=== PATIENT | female | born 1990 | race African-American/Black ===

== ENCOUNTER 2016-12-22 11:29 | Emergency (ER) | payer OTHER ==
[~2016-12-22 11:29] MED LIST: CEPH500C PO; CIPR250T30 PO; HYDR-971 PO; ONDA4TAB12 PO; POLY17PO5 PO; PROC10TA57 PO; SULF1TAB23 PO; TRAM-29 PO
[2016-12-22] MEDS ORDERED: IV NORMAL SALINE 1000ML BAG 1,000 ML IV SCH (12:38)
--- NOTE | 2016-12-22 12:45 | ED.ADGEN ---
Past Medical History Past Medical History: No Pertinent History Past Surgical History: , Other Additional Past Surgical Histo: HERNIA REPAIR Alcohol Use: Occasionally Drug Use: None Adult General Chief Complaint Chief Complaint: VAGINAL BLEEDING HPI HPI Patient is a 26 year old female who is a at approximately 6 weeks presents complaining of intermittent but progressively worsening right lower quadrant pain over the last 4 days. She reports that she noticed some pinkish tinge when she wiped this morning. She reports that happened only the one time and has seen no evidence of blood since then. She denies any other vaginal discharge or bleeding. She has not had an ultrasound or any care for this yet. Patient does report significant problems throughout both of her previous 2 pregnancies. She denies any fever, chills, nausea, vomiting. Denies any dysuria or changes in bowel habits. He tells that the pain feels better when she applies gentle pressure. She describes it as "cramp-like" Review of Systems Review of Systems Constitutional: Denies fever or chills. [] Eyes: Denies change in visual acuity. [] HENT: Denies nasal congestion or sore throat. [] Respiratory: Denies cough or shortness of breath. [] Cardiovascular: Denies chest pain or edema. [] GI: Denies abdominal pain, nausea, vomiting, bloody stools or diarrhea. [] : Denies dysuria. [] Musculoskeletal: Denies back pain or joint pain. [] Integument: Denies rash. [] Neurologic: Denies headache, focal weakness or sensory changes. [] Endocrine: Denies polyuria or polydipsia. [] Lymphatic: Denies swollen glands. [] Psychiatric: Denies depression or anxiety. [] Current Medications Current Medications Current Medications Medications (Trade) Dose Ordered Sig/Jemma Start Time Stop Time Status Last Admin Dose Admin Sodium Chloride (Iv Sodium Chloride 0.9% 1000ml Bag) 1,000 ml @ 1,000 mls/hr Q1H 12/22/16 12:38 12/22/16 13:37 DC 12/22/16 13:14 1,000 MLS/HR Allergies Allergies Allergies Coded Allergies Type Severity Reaction Last Updated Verified No Known Drug Allergies 07/16/16 No Physical Exam Physical Exam Constitutional: Well developed, well nourished, no acute distress, non-toxic appearance. [] HENT: Normocephalic, atraumatic, bilateral external ears normal, oropharynx moist, no oral exudates, nose normal. [] Eyes: PERRLA, EOMI, conjunctiva normal, no discharge. [] Neck: Normal range of motion, no tenderness, supple, no stridor. [] Cardiovascular:Heart rate regular rhythm, no murmur [] Lungs & Thorax: Bilateral breath sounds clear to auscultation [] Abdomen: Bowel sounds normal, soft, mild right lower quadrant tenderness to palpation without peritoneal signs, no masses, no pulsatile masses. [] Skin: Warm, dry, no erythema, no rash. [] Back: No tenderness, no CVA tenderness. [] Extremities: No tenderness, no cyanosis, no clubbing, ROM intact, no edema. [] Neurologic: Alert and oriented X 3, normal motor function, normal sensory function, no focal deficits noted. [] Psychologic: Affect normal, judgement normal, mood normal. [] Current Patient Data Vital Signs Vital Signs Date Time Temp Pulse Resp B/P Pulse Ox O2 Delivery O2 Flow Rate FiO2 12/22/16 15:00 86 20 98/53 100 Room Air 12/22/16 12:20 97.8 97.8 Lab Values Laboratory Tests Test 12/22/16 12:05 12/22/16 13:07 Urine Collection Type Unknown Urine Color Yellow Urine Clarity Clear Urine pH 6.5 Urine Specific [place] >=1.030 Urine Protein Negativemg/dL (NEG-TRACE) Urine Glucose (UA) Negativemg/dL (NEG) Urine Ketones (Stick) Negativemg/dL (NEG) Urine Blood Negative (NEG) Urine Nitrite Negative (NEG) Urine Bilirubin Negative (NEG) Urine Urobilinogen Dipstick 1.0mg/dL (0.2 mg/dL) Urine Leukocyte Esterase Trace (NEG) Urine RBC 0/HPF (0-2) Urine WBC Occ/HPF (0-4) Urine Squamous Epithelial Cells Many/LPF Urine Bacteria 0/HPF (0-FEW) Urine Mucus Marked/LPF Urine Test Positive (NEG) White Blood Count 7.0x10^3/uL (4.0-11.0) Red Blood Count 4.66x10^6/uL (3.50-5.40) Hemoglobin 12.2g/dL (12.0-15.5) Hematocrit 37.9% (36.0-47.0) Mean Corpuscular Volume 81fL (79-100) Mean Corpuscular Hemoglobin 26pg (25-35) Mean Corpuscular Hemoglobin Concent 32g/dL (31-37) Red Cell Distribution Width 14.2% (11.5-14.5) Platelet Count 183x10^3/uL (140-400) Neutrophils (%) (Auto) 68% (31-73) Lymphocytes (%) (Auto) 23% (24-48) L Monocytes (%) (Auto) 8% (0-9) Eosinophils (%) (Auto) 1% (0-3) Basophils (%) (Auto) 0% (0-3) Neutrophils # (Auto) 4.8x10^3uL (1.8-7.7) Lymphocytes # (Auto) 1.6x10^3/uL (1.0-4.8) Monocytes # (Auto) 0.5x10^3/uL (0.0-1.1) Eosinophils # (Auto) 0.1x10^3/uL (0.0-0.7) Basophils # (Auto) 0.0x10^3/uL (0.0-0.2) Maternal Serum HCG Beta Subunit [id number]/mL (0-6) H Sodium Level 139mmol/L (136-145) Potassium Level 3.7mmol/L (3.5-5.1) Chloride Level 104mmol/L (98-107) Carbon Dioxide Level 24mmol/L (21-32) Anion Gap 11 (6-14) Blood Urea Nitrogen 8mg/dL (7-20) Creatinine 0.6mg/dL (0.6-1.0) Estimated GFR (Cockcroft-Gault) 147.4 Glucose Level 85mg/dL (70-99) Calcium Level 8.9mg/dL (8.5-10.1) Total Bilirubin 0.3mg/dL (0.2-1.0) Direct Bilirubin 0.1mg/dL (0.0-0.2) Aspartate Amino Transferase (AST) 16U/L (15-37) Alanine Aminotransferase (ALT) 11U/L (14-59) L Alkaline Phosphatase 52U/L (46-116) Total Protein 7.6g/dL (6.4-8.2) Albumin 3.6g/dL (3.4-5.0) Laboratory Tests 12/22/16 13:07 Laboratory Tests 12/22/16 13:07 EKG EKG [] Radiology/Procedures Radiology/Procedures Procedure: OB Sono Less Than 14Wks 0 Days Clinical information: Spotting, patient is Date of Service: 12/22/16. Comparison: None available Technique: Multiple transabdominal and endovaginal longitudinal and transverse 2D real time ultrasound images through the pelvis were acquired. Findings: The uterus measures[ 9.6 x 5.6 x 6.1 ] There is a single intrauterine gestational sac containing a [ live] pole and yolk sac. CRL measures [ 0.33 ] centimeters corresponding to [ 6 ] weeks and [ 0 ] days. This corresponds to a EDC of [ 08/17/17 ] . Maturity by LMP is [ 5 weeks and 6 days ] . This corresponds to a EDC of [ 08/18/17 ] . Doppler interrogation reveals a cardiac activity at the rate of 115beats per minute. The ovaries are unremarkable. The right ovary measures 2.7 x 1.8 x 1.7 cm the left ovary measures 2.9 x 2.0 x 1.5 cm. Symmetric vascularity to both ovaries. No adnexal mass is seen. No free fluid is seen. Impression: 1. Single intrauterine gestational sac containing a pole of maturity 6 weeks and 0 days with cardiac activity 115 bpm DICTATED and SIGNED BY: PARISH EDMONDS MD DATE: 12/22/16 1338 CC: YAQUELIN LAROSE MD; VANDANA VELASCO PHOTOGRAPH DEVELOPER ~[] Course & Med Decision Making Course & Med Decision Making Pertinent Labs and Imaging studies reviewed. (See chart for details) The patient did have a very reassuring workup. Emergency department. Her Quant and ultrasound are consistent with her dates and did demonstrate a interuterine . Patient was asked to follow-up with her OB doctor next week if possible and return emergency department sooner she develops any new or worsening symptoms. [] Dragon Disclaimer Dragon Disclaimer This electronic medical record was generated, in whole or in part, using a voice recognition dictation system. YAQUELIN LAROSE MD Dec 22, 2016 12:45
[2016-12-22 12:55] LABS: NEG OBC UR NEG; POS OBC UR POS
[2016-12-22 13:00] LABS: BILIRUBIN,URINE NEGATIVE (NEG); GLUCOSE,URINE NEGATIVE (NEG); NITRITE,URINE NEGATIVE (NEG); PH,URINE 6.5; PROTEIN,URINE NEGATIVE (NEG-TRACE)
[2016-12-22 13:15] LABS: BACTERIA,URINE 0 /HPF (0-FEW); RBC,URINE 0 /HPF (0-2); SQUAMOUS EPITHELIAL CELL,UR MANY /LPF; WBC,URINE OCC /HPF (0-4)
[2016-12-22 13:31] LABS: CALCIUM 8.9 mg/dL (8.5-10.1); CREATININE 0.6 mg/dL (0.6-1.0); GFR 147.4; POTASSIUM 3.7 mmol/L (3.5-5.1)
[2016-12-22 13:33] LABS: BASO % 0 % (0-3); EOS % 1 % (0-3); HEMATOCRIT 37.9 % (36.0-47.0); HEMOGLOBIN 12.2 g/dL (12.0-15.5); LYMPH # 1.6 x10^3/uL (1.0-4.8); LYMPH % 23 % (24-48); MEAN CORPUSCULAR HEMOGLOBIN 26 pg (25-35); MEAN CORPUSCULAR HGB CONC 32 g/dL (31-37); MEAN CORPUSCULAR VOLUME 81 fL (79-100); MONO % 8 % (0-9); NEUT % 68 % (31-73); PLATELET COUNT 183 x10^3/uL (140-400); RED BLOOD COUNT 4.66 x10^6/uL (3.50-5.40); RED CELL DISTRIBUTION WIDTH 14.2 % (11.5-14.5)
[2016-12-22 13:37] LABS: ALBUMIN 3.6 g/dL (3.4-5.0); DIRECT BILIRUBIN 0.1 mg/dL (0.0-0.2); TOTAL BILIRUBIN 0.3 mg/dL (0.2-1.0); TOTAL PROTEIN 7.6 g/dL (6.4-8.2)
--- NOTE | 2016-12-22 13:48 | RAD ---
Procedure: OB Sono Less Than 14Wks 0 Days Clinical information: Spotting, patient is Date of Service: 12/22/16. Comparison: None available Technique: Multiple transabdominal and endovaginal longitudinal and transverse 2D real time ultrasound images through the pelvis were acquired. Findings: The uterus measures[ 9.6 x 5.6 x 6.1 ] There is a single intrauterine gestational sac containing a [ live] pole and yolk sac. CRL measures [ 0.33 ] centimeters corresponding to [ 6 ] weeks and [ 0 ] days. This corresponds to a EDC of [ 08/17/17 ] . Maturity by LMP is [ 5 weeks and 6 days ] . This corresponds to a EDC of [ 08/18/17 ] . Doppler interrogation reveals a cardiac activity at the rate of 115beats per minute. The ovaries are unremarkable. The right ovary measures 2.7 x 1.8 x 1.7 cm the left ovary measures 2.9 x 2.0 x 1.5 cm. Symmetric vascularity to both ovaries. No adnexal mass is seen. No free fluid is seen. Impression: 1. Single intrauterine gestational sac containing a pole of maturity 6 weeks and 0 days with cardiac activity 115 bpm
[2016-12-22 15:00] VITALS: BP 98/53
== END 2016-12-22 15:00 | disposition home or self-care (01) ==
LOC: ER 11:29
DX: O26.891 Other specified pregnancy related conditions, first trimester (principal); R10.31 Right lower quadrant pain; Z3A.01 Less than 8 weeks gestation of pregnancy
CPT/HCPCS: 36415; 76801; 80048; 80076; 81001; 81025; 84702; 85027; 86900; 86901; 96360; 99285; J7030; 87086

== ENCOUNTER 2017-01-13 16:23 | Emergency (ER) | payer OTHER ==
[~2017-01-13] VITALS: Ht 149.9 cm; Wt 63.0 kg
[2017-01-13 17:00] VITALS: BP 98/58
[2017-01-13] MEDS ORDERED: ACETAMINOPHEN 500 MG TABLET PO ONE (17:00)
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
== END 2017-01-13 17:25 | disposition home or self-care (01) ==
LOC: ER 16:23
DX: O26.891 Other specified pregnancy related conditions, first trimester (principal); R10.30 Lower abdominal pain, unspecified; M54.5 Low back pain; R42 Dizziness and giddiness; R11.0 Nausea; Z3A.00 Weeks of gestation of pregnancy not specified; V89.2XXA Person injured in unspecified motor-vehicle accident, traffic, initial encounter; Y93.89 Activity, other specified; Y92.410 Unspecified street and highway as the place of occurrence of the external cause; Y99.8 Other external cause status
CPT/HCPCS: 99284

== ENCOUNTER 2017-02-10 18:35 | Emergency (ER) | payer OTHER ==
[~2017-02-10] VITALS: Ht 149.9 cm; Wt 60.3 kg
[2017-02-10] MEDS ORDERED: IV NORMAL SALINE 1000ML BAG 1,000 ML IV SCH (19:00)
[2017-02-10 19:06] LABS: BILIRUBIN,URINE NEGATIVE (NEG); GLUCOSE,URINE NEGATIVE (NEG); NITRITE,URINE NEGATIVE (NEG); PROTEIN,URINE NEGATIVE (NEG-TRACE); UROBILINOGEN,URINE 0.2 mg/dL (0.2 mg/dL)
[2017-02-10] MEDS ORDERED: ONDANSETRON PF 4 MG/2 ML VIAL. IV ONE (19:15)
[2017-02-10 19:19] LABS: CREATININE 0.5 mg/dL (0.6-1.0); GFR 181.9; POTASSIUM 3.4 mmol/L (3.5-5.1)
[2017-02-10 19:23] LABS: BACTERIA,URINE 0 /HPF (0-FEW); RBC,URINE OCC /HPF (0-2); SQUAMOUS EPITHELIAL CELL,UR MOD /LPF
[2017-02-10 20:00] VITALS: BP 92/60
[2017-02-10] MEDS ORDERED: POTASSIUM CHLORIDE 20 MEQ TABLET.ER. PO ONE (20:00)
[2017-02-10] MEDS ORDERED: PROM12.56 PO (20:00)
--- NOTE | 2017-02-10 20:00 | PHYS DOC ---
Past Medical History Past Medical History: No Pertinent History Past Surgical History: , Other Additional Past Surgical Histo: HERNIA REPAIR Alcohol Use: None Drug Use: None Adult General Chief Complaint Chief Complaint: VOMITING IN HPI HPI Patient is a 26 year old female approx 15 wk IUP who presents with multiple episodes of nbnb emesis today. States she has minimal abdominal pain that developed after multiple episodes of emesis. States this feels exactly like her other episodes of intermittent nausea and vomiting that has occurred during this . She is taking Diclegis and Zofran at home without control of her symptoms. Denies dysuria, hematuria, fever or chills, diarrhea, constipation , vaginal bleeding or discharge. Review of Systems Review of Systems Constitutional: Denies fever or chills [] Eyes: Denies change in visual acuity, redness, or eye pain [] HENT: Denies nasal congestion or sore throat [] Respiratory: Denies cough or shortness of breath [] Cardiovascular: No additional information not addressed in HPI [] GI: Denies bloody stools or diarrhea [] : Denies dysuria or hematuria [] Musculoskeletal: Denies back pain or joint pain [] Integument: Denies rash or skin lesions [] Neurologic: Denies headache, focal weakness or sensory changes [] Endocrine: Denies polyuria or polydipsia [] Current Medications Current Medications Current Medications Medications (Trade) Dose Ordered Sig/Jemma Start Time Stop Time Status Last Admin Dose Admin Ondansetron HCl (Zofran) 4 mg 1X ONCE 02/10/17 19:15 02/10/17 19:16 DC 02/10/17 19:13 4 MG Potassium Chloride (Klor-Con) 40 meq 1X ONCE 02/10/17 20:00 02/10/17 20:01 DC 02/10/17 20:04 40 MEQ Sodium Chloride (Iv Sodium Chloride 0.9% 1000ml Bag) 1,000 ml @ 1,000 mls/hr Q1H 02/10/17 19:00 02/10/17 19:59 DC 02/10/17 19:13 1,000 MLS/HR Allergies Allergies Allergies Coded Allergies Type Severity Reaction Last Updated Verified No Known Drug Allergies 07/16/16 No Physical Exam Physical Exam Constitutional: Well developed, well nourished, no acute distress, non-toxic appearance. [] HENT: Normocephalic, atraumatic, bilateral external ears normal, oropharynx moist, nose normal. [] Eyes: PERRLA, EOMI. [] Neck: Normal range of motion, supple. [] Cardiovascular:Heart rate regular rhythm [] Lungs & Thorax: Bilateral breath sounds clear to auscultation [] Abdomen: Bowel sounds normal, soft, no tenderness. [] Skin: Warm, dry, no erythema, no rash. [] Back: No tenderness, no CVA tenderness. [] Extremities: No tenderness, ROM intact, no edema. [] Neurologic: Alert and oriented X 3, normal motor function, normal sensory function, no focal deficits noted. [] Psychologic: Affect normal, judgement normal, mood normal. [] Current Patient Data Vital Signs Vital Signs Date Time Temp Pulse Resp B/P Pulse Ox O2 Delivery O2 Flow Rate FiO2 02/10/17 20:00 73 18 92/60 100 Room Air 02/10/17 18:41 98.2 98.2 Lab Values Laboratory Tests Test 02/10/17 17:54 02/10/17 18:45 02/10/17 19:00 POC Urine HCG, Qualitative Hcg positive (Negative) Urine Color Yellow Urine Clarity Cloudy Urine pH 6.0 Urine Specific [place] 1.025 Urine Protein Negativemg/dL (NEG-TRACE) Urine Glucose (UA) Negativemg/dL (NEG) Urine Ketones (Stick) >=80mg/dL (NEG) Urine Blood Small (NEG) Urine Nitrite Negative (NEG) Urine Bilirubin Negative (NEG) Urine Urobilinogen Dipstick 0.2mg/dL (0.2 mg/dL) Urine Leukocyte Esterase Negative (NEG) Urine RBC Occ/HPF (0-2) Urine WBC 1-4/HPF (0-4) Urine Squamous Epithelial Cells Mod/LPF Urine Bacteria 0/HPF (0-FEW) Urine Mucus Mod/LPF Sodium Level 137mmol/L (136-145) Potassium Level 3.4mmol/L (3.5-5.1) L Chloride Level 102mmol/L (98-107) Carbon Dioxide Level 23mmol/L (21-32) Anion Gap 12 (6-14) Blood Urea Nitrogen 7mg/dL (7-20) Creatinine 0.5mg/dL (0.6-1.0) L Estimated GFR (Cockcroft-Gault) 181.9 Glucose Level 106mg/dL (70-99) H Calcium Level 9.0mg/dL (8.5-10.1) Laboratory Tests 02/10/17 19:00 Course & Med Decision Making Course & Med Decision Making Pertinent Labs and Imaging studies reviewed. (See chart for details) Workup is unremarkable other than mild hypokalemia. Bedside ultrasound as performed by me showing single IUP with heart rate of 148. She is feeling much better after medications and tolerating po. She would like to go home. Return precautions given. She understands and agrees with plan. Dragon Disclaimer Dragon Disclaimer This electronic medical record was generated, in whole or in part, using a voice recognition dictation system. Departure Departure Impression: Primary Impression: Nausea and vomiting during Disposition: 01 HOME, SELF-CARE Condition: STABLE Referrals: VANDANA VELASCO BALLET TEACHER (PCP) Patient Instructions: Nausea and Vomiting, [id number] Additional Instructions: Take promethazine as needed for nausea. Follow-up with your OB doctor. Return for any concerns. Scripts Promethazine Hcl 12.5 Mg Tablet1 Tab PO Q6-8HRS PRN NAUSEA #10 TAB Ref 0 Prov:Laurel KAMINSKI MD 02/10/17 Laurel KAMINSKI MD Feb 10, 2017 20:00
== END 2017-02-10 20:17 | disposition home or self-care (01) ==
LOC: ER 18:35
DX: O21.8 Other vomiting complicating pregnancy (principal); R11.0 Nausea; Z98.890 Other specified postprocedural states; Z3A.15 15 weeks gestation of pregnancy
CPT/HCPCS: 36415; 80048; 81001; 81025; 96361; 96374; 99285; J2405; J7030

== ENCOUNTER 2017-04-18 16:22 | Observation (INO) | payer SELFPAY ==
[~2017-04-18 16:22] MED LIST changes: +POLY17PO29 PO; -POLY17PO5 PO; +PROM12.56 PO
[2017-04-18] MEDS ORDERED: IV RINGERS,LACTATED 1000ML 1,000 ML IV PRN ×2 (17:00→17:13)
[2017-04-18] MEDS ORDERED: ONDANSETRON PF 4 MG/2 ML VIAL. IV PRN (17:00)
[2017-04-18 17:43] LABS: BASO % 1 % (0-3); EOS % 1 % (0-3); HEMOGLOBIN 10.1 g/dL (12.0-15.5); LYMPH # 0.5 x10^3/uL (1.0-4.8); LYMPH % 8 % (24-48); MEAN CORPUSCULAR HEMOGLOBIN 27 pg (25-35); MEAN CORPUSCULAR HGB CONC 33 g/dL (31-37); MEAN CORPUSCULAR VOLUME 84 fL (79-100); MONO % 12 % (0-9); NEUT % 79 % (31-73); PLATELET COUNT 138 x10^3/uL (140-400); RED BLOOD COUNT 3.71 x10^6/uL (3.50-5.40); RED CELL DISTRIBUTION WIDTH 15.3 % (11.5-14.5); WHITE BLOOD COUNT 6.5 x10^3/uL (4.0-11.0)
[2017-04-18 17:51] LABS: CALCIUM 8.4 mg/dL (8.5-10.1); CREATININE 0.4 mg/dL (0.6-1.0); GFR 235.3; POTASSIUM 3.6 mmol/L (3.5-5.1)
[2017-04-18 17:57] LABS: ALBUMIN 2.7 g/dL (3.4-5.0); ALBUMIN/GLOBULIN RATIO 0.6 (1.0-1.7); TOTAL BILIRUBIN 0.3 mg/dL (0.2-1.0)
[2017-04-18 18:02] LABS: BILIRUBIN,URINE NEGATIVE (NEG); GLUCOSE,URINE NEGATIVE (NEG); NITRITE,URINE NEGATIVE (NEG); PH,URINE 7.5; PROTEIN,URINE NEGATIVE (NEG-TRACE)
[2017-04-18 18:07] LABS: BACTERIA,URINE MODERATE /HPF (0-FEW); RBC,URINE OCC /HPF (0-2); SQUAMOUS EPITHELIAL CELL,UR MOD /LPF; WBC,URINE OCC /HPF (0-4)
== END 2017-04-18 19:46 | disposition home or self-care (01) ==
LOC: 3 SO LND 16:22
PROVIDERS: ADMIT Specialist; ATTEND Specialist
DX: O26.892 Other specified pregnancy related conditions, second trimester (principal); R10.9 Unspecified abdominal pain; Z3A.23 23 weeks gestation of pregnancy
CPT/HCPCS: 36415; 80053; 81001; 85027; 87086; G0378; G0379; J7120

== ENCOUNTER 2018-01-29 19:01 | Emergency (ER) | payer OTHER ==
[2018-01-29] MEDS: IOHEXOL 300 MG/ML 100ML VIAL. IV (10:10)
[2018-01-29 19:54] LABS: D-DIMER 1.43 ug/mlFEU (0.00-0.50)
[2018-01-29] MEDS ORDERED: KETOROLAC 60 MG/2 ML INJ. IM (20:00)
[2018-01-29] MEDS: KETOROLAC 30 MG/ML INJ. IV (20:22)
[2018-01-29 20:28] LABS: AGAP ISTAT 16 mmol/L (6-14); BUN ISTAT 10 mg/dL (8-26); CHLORIDE ISTAT 107 mmol/L (98-110); CREATININE ISTAT 0.5 mg/dL (0.5-1.4); GLUCOSE ISTAT 105 mg/dL (70-99); HEMATOCRIT ISTAT 40 % (36-40); HEMOGLOBIN ISTAT 13.6 g/dL (12-15); ION CA ISTAT 1.15 mmol/L (1.13-1.32); POTASSIUM ISTAT 3.7 mmol/L (3.5-5.0); SODIUM ISTAT 141 mmol/L (135-145); TOT CO2 ISTAT 23 mmol/L (23-32)
[2018-01-29 21:25] LABS: URINE HCG POC HCG NEGATIVE (Negative)
[2018-01-30] MEDS: HYDROcodone/APAP 7.5/325MG 1 TAB TABLET PO
[2018-01-30] MEDS: DOXYCYCLINE HYCLATE 100 MG TABLET PO (00:16)
[2018-01-30] MEDS: ACETAMINOPHEN 500 MG TABLET PO (00:32)
== END 2018-01-30 00:42 | disposition home or self-care (01) ==
LOC: ER 01-30 00:42
DX: J18.9 Pneumonia, unspecified organism (principal); R07.89 Other chest pain; M54.89 Other dorsalgia; Z98.890 Other specified postprocedural states
CPT/HCPCS: 36415; 71046; 71275; 80047; 81025; 84484; 85379; 93005; 96374; 99285-25; J1885; Q9967

== ENCOUNTER 2018-10-10 11:51 | Emergency (ER) | payer SELFPAY ==
[~2018-10-10] VITALS: Ht 149.9 cm; Wt 70.3 kg
[~2018-10-10 11:51] MED LIST changes: +DOXY100C14 PO; +HYDR-3135 PO; +HYDR-3164 PO; -HYDR-971 PO; +PROAIR HFA8.5 GM INH; -TRAM-29 PO; +TRAM-48 PO
[2018-10-10 11:58] VITALS: BP 115/58
[2018-10-10 12:22] LABS: BILIRUBIN,URINE NEGATIVE (NEG); CLARITY,URINE CLEAR; COLOR,URINE YELLOW; NITRITE,URINE NEGATIVE (NEG); PROTEIN,URINE NEGATIVE (NEG-TRACE)
--- NOTE | 2018-10-10 12:24 | PHYS DOC ---
Past Medical History Past Medical History: No Pertinent History Past Surgical History: Additional Past Surgical Histo: HERNIA REPAIR Alcohol Use: None Drug Use: None Adult General Chief Complaint Chief Complaint: NAUSEA/VOMITING/DIARRHA HPI HPI 28-year-old female presents to ER for complaints of intermittent nausea times one month. Patient reports she was diagnosed with BV 1 month ago but failed to get the prescription filled for Flagyl due to financial reasons. Patient reports she was seen by her [facility] 1 month ago who diagnosed her. Patient's LMP was 09/17/18 she denies any change in vaginal symptoms. Patient reports since she was evaluated by her OB doctor she continues to have "fishy stinky discharge ". Review of Systems Review of Systems Constitutional: Denies fever or chills denies fatigue Respiratory: Denies cough or shortness of breath [] Cardiovascular: No additional information not addressed in HPI [] GI: Denies abdominal pain, vomiting, bloody stools or diarrhea. Reports intermittent nausea denying any increase after meals : Denies dysuria or hematuria. Reports "fishy" vaginal discharge similar to when examined by [facility]PER[facility] 1 mo. ago- denies abnorm. vaginal bleeding/pelvic pressure or pain Musculoskeletal: Denies back pain or joint pain [] Integument: Denies rash or skin lesions [] Neurologic: Denies headache, focal weakness or sensory changes [] All other systems were reviewed and found to be within normal limits, except as documented in this note. Allergies Allergies Allergies Coded Allergies Type Severity Reaction Last Updated Verified No Known Drug Allergies 07/16/16 No Physical Exam Physical Exam Constitutional: Well developed, well nourished, no acute distress, non-toxic appearance. [] HENT: Normocephalic, atraumatic, oropharynx moist, nose normal. [] Eyes: Pupils equal, conjunctiva normal, no discharge. [] Neck: Normal range of motion, no tenderness, supple Cardiovascular:Heart rate regular rhythm, no murmur [] Lungs & Thorax: Bilateral breath sounds clear to auscultation. Resp. equal/ nonlabored Abdomen: Bowel sounds normal, soft, no tenderness/rigidity Skin: Warm, dry, no erythema, no rash. [] Back: No tenderness, no CVA tenderness. [] Extremities: No tenderness, no cyanosis, no clubbing, ROM intact, no edema. [] Neurologic: Alert and oriented X 3, normal motor function, normal sensory function, no focal deficits noted. [] Psychologic: Affect normal, judgement normal, mood normal. [] Current Patient Data Vital Signs Vital Signs Date Time Temp Pulse Resp B/P (MAP) Pulse Ox O2 Delivery O2 Flow Rate FiO2 10/10/18 11:58 98.4 89 18 115/58 (77) 100 Room Air 98.4 Lab Values Laboratory Tests Test 10/10/18 12:14 10/10/18 12:15 Urine Collection Type Unknown Urine Color Yellow Urine Clarity Clear Urine pH 6.0 Urine Specific [place] 1.025 Urine Protein Negative mg/dL (NEG-TRACE) Urine Glucose (UA) Negative mg/dL (NEG) Urine Ketones (Stick) Negative mg/dL (NEG) Urine Blood Trace (NEG) Urine Nitrite Negative (NEG) Urine Bilirubin Negative (NEG) Urine Urobilinogen Dipstick 1.0 mg/dL (0.2 mg/dL) Urine Leukocyte Esterase Negative (NEG) Urine RBC Rare /HPF (0-2) Urine WBC 1-4 /HPF (0-4) Urine Squamous Epithelial Cells Mod /LPF Urine Amorphous Sediment Present /HPF Urine Bacteria Few /HPF (0-FEW) Urine Mucus Mod /LPF POC Urine HCG, Qualitative Hcg negative (Negative) EKG EKG [] Radiology/Procedures Radiology/Procedures [] Course & Med Decision Making Course & Med Decision Making Pertinent Labs reviewed. (See chart for details) 1308: Discussed test results with patient on with plans to provide her with a prescription for her Flagyl for previous diagnosed BV with education she should follow-up with her [facility] doctor in one week. Education provided on medication with alcohol avoidance while on as well as 3 days following prescription completion. Patient advised on [id number] medications such as Tylenol and/ or ibuprofen as needed for pain as directed on container. Pt advised on avoiding sexual intercourse until f/u appt with [facility] to ensure infection fully tx'd. Patient remains nontoxic in appearance and in no visible distress during evaluation. Patient has had no episodes of increased nausea or vomiting while in the ER and preferred no Tylenol as dose was offered. Dragon Disclaimer Dragon Disclaimer This electronic medical record was generated, in whole or in part, using a voice recognition dictation system. Departure Departure Impression: Primary Impression: Nausea Additional Impression: Bacterial vaginosis Disposition: HOME, SELF-CARE Condition: STABLE Referrals: NO PCP (PCP) Patient Instructions: Bacterial Vaginosis, Nausea, Adult Additional Instructions: As discussed complete your flagyl prescription for previous diagnosis of bacterial vaginosis. Avoid alcohol while taking during and for 3 days following completion of prescription. Avoid sexual intercourse until follow-up with [facility] - condom use. Tylenol and/or ibuprofen as directed on container as needed for pain. Follow-up with your [facility] doctor in 1 week for re-evaluation sooner with any concerns. Scripts Ondansetron (ONDANSETRON ODT) 4 Mg Tab.rapdis 1 TAB PO PRN Q6-8HRS PRN for NAUSEA, #10 TAB 0 Refills Prov: MABLE KEMP APRN 10/10/18 Metronidazole (FLAGYL) 500 Mg Tablet 1 TAB PO BID, #14 TAB 0 Refills Avoid alcohol while on medication and for 3 days following completion Prov: MABLE KEMP APRN 10/10/18 Problem Qualifiers MABLE KEMP APRN Oct 10, 2018 12:24
[2018-10-10 12:34] LABS: SQUAMOUS EPITHELIAL CELL,UR MOD /LPF
[2018-10-10 12:36] LABS: BACTERIA,URINE FEW /HPF (0-FEW); RBC,URINE RARE /HPF (0-2)
[2018-10-10 12:37] LABS: AMORPHOUS SEDIMENT,UR PRESENT /HPF
[2018-10-10] MEDS ORDERED: METR500T PO (13:15)
[2018-10-10] MEDS ORDERED: ONDA4TAB12 PO (13:15)
== END 2018-10-10 13:27 | disposition home or self-care (01) ==
LOC: ER 11:51
DX: N76.0 Acute vaginitis (principal); B96.89 Other specified bacterial agents as the cause of diseases classified elsewhere; R11.0 Nausea; Z98.890 Other specified postprocedural states
CPT/HCPCS: 81001; 81025; 99283

== ENCOUNTER 2019-05-09 10:20 | Emergency (ER) | payer SELFPAY ==
[~2019-05-09] VITALS: Ht 149.9 cm; Wt 70.3 kg
[~2019-05-09 10:20] MED LIST changes: +ALBU2.5V8 INH; +METR500T PO; -PROAIR HFA8.5 GM INH; -PROM12.56 PO; +PROM12.58 PO
--- NOTE | 2019-05-09 11:03 | PHYS DOC ---
Past Medical History Past Medical History: No Pertinent History Past Surgical History: , Other Additional Past Surgical Histo: HERNIA REPAIR Alcohol Use: None Drug Use: None Adult General Chief Complaint Chief Complaint: HEADACHE HPI HPI Patient is a 28 year old female presented ER today for evaluation of headache, tingling sensation on the right upper extremity off and on for one month. Patient says she was evaluated at [facility] last month for the same symptom, had CT scan of her head was normal, her lab work was normal as well , patient was told to follow with neurologist, however she had no insurance so she is waiting for medicare before she will make the appointment. Patient was recently found out that she is for about 2 weeks ago. Patient denies any pelvic pain, no vaginal bleeding or discharge. She had three children already. She already has an [employer] doctor at [facility]. Review of Systems Review of Systems Constitutional: Denies fever or chills [] Eyes: Denies change in visual acuity, redness, or eye pain [] HENT: Denies nasal congestion or sore throat [] Respiratory: Denies cough or shortness of breath [] Cardiovascular: No additional information not addressed in HPI [] GI: Denies abdominal pain, nausea, vomiting, bloody stools or diarrhea [] : Denies dysuria or hematuria [] Musculoskeletal: Denies back pain or joint pain [] Integument: Denies rash or skin lesions [] Neurologic: Positive for headache, NO focal weakness, pOSITIVE FOR TINGLING SENSATION ON RIGHT UPPER EXTREMITY. Endocrine: Denies polyuria or polydipsia [] All other systems were reviewed and found to be within normal limits, except as documented in this note. Allergies Allergies Allergies Coded Allergies Type Severity Reaction Last Updated Verified No Known Drug Allergies 07/16/16 No Physical Exam Physical Exam Constitutional: Well developed, well nourished, no acute distress, non-toxic appearance. [] HENT: Normocephalic, atraumatic, bilateral external ears normal, oropharynx moist, no oral exudates, nose normal. [] Eyes: PERRLA, EOMI, conjunctiva normal, no discharge. [] Neck: Normal range of motion, no tenderness, supple, no stridor. [] Cardiovascular:Heart rate regular rhythm, no murmur [] Lungs & Thorax: Bilateral breath sounds clear to auscultation [] Abdomen: Bowel sounds normal, soft, no tenderness, no masses, no pulsatile masses. [] Skin: Warm, dry, no erythema, no rash. [] Back: No tenderness, no CVA tenderness. [] Extremities: No tenderness, no cyanosis, no clubbing, ROM intact, no edema. [] Neurologic: Alert and oriented X 3, normal motor function, normal sensory function, no focal deficits noted. Patient's speech was clear, able to move all extremities without any problem. Patient said she felt like she has blurry vision on right eye but able to see without any problem. Patient appeared very anxious. Psychologic: Affect normal, judgement normal, mood normal. anxious and hyperventilating. Current Patient Data Vital Signs Vital Signs Date Time Temp Pulse Resp B/P (MAP) Pulse Ox O2 Delivery O2 Flow Rate FiO2 05/09/19 11:18 98 17 99 05/09/19 10:27 99.1 129/87 (101) Room Air 99.1 Lab Values Laboratory Tests Test 05/09/19 10:34 POC Urine HCG, Qualitative Hcg positive (Negative) EKG EKG [] Radiology/Procedures Radiology/Procedures [] Course & Med Decision Making Course & Med Decision Making Pertinent Labs and Imaging studies reviewed. (See chart for details) [] Dragon Disclaimer Dragon Disclaimer This electronic medical record was generated, in whole or in part, using a voice recognition dictation system. Departure Departure Impression: Primary Impression: Headache Disposition: HOME, SELF-CARE Condition: STABLE Referrals: NO PCP (PCP) FOLLOW UP WITH PCP NEEDED FOR HEADACHE. TAKE TYLENOL AND BENADRYL EVERY 6 HOURS NEEDED FOR YOUR HEADACHE. Patient Instructions: General Headache Without Cause FAVIOLA THORNTON DO May 09, 2019 11:03
[2019-05-09 11:18] VITALS: BP 121/73
== END 2019-05-09 11:23 | disposition home or self-care (01) ==
LOC: ER 10:20
DX: R51 Headache (principal); R20.2 Paresthesia of skin; Z98.890 Other specified postprocedural states
CPT/HCPCS: 81025; 99283

== ENCOUNTER 2020-10-16 09:43 | Emergency (ER) | payer OTHER ==
[~2020-10-16] VITALS: Ht 149.9 cm; Wt 75.0 kg
[2020-10-16 10:42] VITALS: BP 120/83
== END 2020-10-16 11:30 | disposition left against medical advice (07) ==
LOC: ER 09:43
DX: R51.9 Headache, unspecified (principal); Z53.21 Procedure and treatment not carried out due to patient leaving prior to being seen by health care provider
CPT/HCPCS: 81025

== ENCOUNTER 2021-07-26 17:37 | Emergency (ER) | payer OTHER ==
[~2021-07-26] VITALS: Ht 149.9 cm; Wt 72.7 kg
[~2021-07-26 17:37] MED LIST changes: +DOXY-181 PO; -DOXY100C14 PO
[2021-07-26 18:10] VITALS: BP 124/82
--- NOTE | 2021-07-26 18:46 | PHYS DOC ---
Past Medical History Past Medical History: No Pertinent History (VANI PALACIOS NEWSPAPER JOURNALIST) Past Surgical History: , Other Additional Past Surgical Histo: HERNIA REPAIR (VANI PALACIOS NEWSPAPER JOURNALIST) Smoking Status: Never Smoker Alcohol Use: None Drug Use: None (VANI PALACIOS APRN) General Adult EDM: Chief Complaint: FEVER HPI: HPI: Patient is a 30 year old female who presents with yesterday began having cough, chills and headache. She is not taking any medication for symptoms. She has a history of 4 C-sections and hernia repair. She denies taking any medications every day or any other past medical history. She is not vaccinated for Covid. She rates her pain about 5 out of 10 at this time. Patient denies chest pain, shortness of breath, abdominal pain, nausea, vomiting, diarrhea, vision change, focal weakness, numbness or tingling. (VANI PALACIOS NEWSPAPER JOURNALIST) Review of Systems: Review of Systems: +Denies fever or chills. [] Eyes: Denies change in visual acuity. [] HENT: Denies nasal congestion or sore throat. [] Respiratory: + cough or denies shortness of breath. [] Cardiovascular: Denies chest pain or edema. [] GI: Denies abdominal pain, nausea, vomiting, bloody stools or diarrhea. [] : Denies dysuria. [] Musculoskeletal: Denies back pain or joint pain. [] Integument: Denies rash. [] Neurologic: + Intermittent headache, denies focal weakness or sensory changes. [] Endocrine: Denies polyuria or polydipsia. [] Lymphatic: Denies swollen glands. [] Psychiatric: Denies depression or anxiety. [] (VAIN PALACIOS NEWSPAPER JOURNALIST) Heart Score: C/O Chest Pain: No Risk Factors: Risk Factors: DM, Current or recent (<one month) smoker, HTN, HLP, family history of CAD, obesity. Risk Scores: Score 0 - 3: 2.5% MACE over next 6 weeks - Discharge Home Score 4 - 6: 20.3% MACE over next 6 weeks - Admit for Clinical Observation Score 7 - 10: 72.7% MACE over next 6 weeks - Early Invasive Strategies (VANI PALACIOS NEWSPAPER JOURNALIST) Allergies: Allergies: Allergies Coded Allergies Type Severity Reaction Last Updated Verified No Known Drug Allergies 07/16/16 No (VANI PALACIOS APRN) Physical Exam: PE: Constitutional: Well developed, well nourished, no acute distress, non-toxic appearance. [] HENT: Normocephalic, atraumatic, bilateral external ears normal, oropharynx moist, no oral exudates, nose normal. [] Eyes: PERRLA, EOMI, conjunctiva normal, no discharge. [] Neck: Normal range of motion, no tenderness, supple, no stridor. [] Cardiovascular:Heart rate regular rhythm, no murmur [] Lungs & Thorax: Bilateral breath sounds clear to auscultation [] Abdomen: Bowel sounds normal, soft, no tenderness, no masses, no pulsatile masses. [] Skin: Warm, dry, no erythema, no rash. [] Back: No tenderness, no CVA tenderness. [] Extremities: No tenderness, no cyanosis, no clubbing, ROM intact, no edema. [] Neurologic: Alert and oriented X 3, normal motor function, normal sensory function, no focal deficits noted. [] Psychologic: Affect normal, judgement normal, mood normal. [] Normal physical exam (VANI PALACIOS APRN) Current Patient Data: Vital Signs: Vital Signs Date Time Temp Pulse Resp B/P (MAP) Pulse Ox O2 Delivery O2 Flow Rate FiO2 07/26/21 18:10 98.6 85 20 124/82 (95) 99 Room Air 98.6 (VANI PALACIOS APRN) EKG: EKG: [] (VANI PALACIOS APRN) Radiology/Procedures: Radiology/Procedures: [] Impression: [facility] [address] [place], [place] [id number] IMAGING REPORT Signed PATIENT: OLGA TRIPP SACCOUNT: [id number] : 1990 LOCATION: ER AGE: 30 SEX: F EXAM STATUS: PRE ER ORD. PHYSICIAN: VANI PALACIOS APRN REASON: COUGH PROCEDURE: PORTABLE CHEST 1V INDICATION: Reason: COUGH / Spl. Instructions: / History: COMPARISON: January 2018 FINDINGS: Single view of chest obtained. No focal airspace consolidation. Cardiomediastinal contour unremarkable. No acute osseous abnormality. IMPRESSION: * No focal airspace consolidation or edema. Electronically signed by: Jackie Floyd MD (07/26/2021 7:03 PM) [id number] DICTATED and SIGNED BY: JACKIE FLOYD MD DATE: 07/26/21 [id number] (VANI PALACIOS APRN) Course & Med Decision Making: Course & Med Decision Making Pertinent Labs and Imaging studies reviewed. (See chart for details) COVID-19 CRITERIA: The patient was evaluated during the global COVID-19 pandemic, and that diagnosis was suspected/considered upon their initial presentation. Their evaluation, treatment and testing was consistent with current guidelines for patients who present with complaints or symptoms that may be related to COVID-19. See HPI. Alert and oriented x4. Ambulatory steady gait. Speaks in full clear sentences. Skin pink warm dry. Cap refill less than 2 seconds. Lungs are clear to auscultation in all lobes. Vital signs are within normal limits. [] (VANI PALACIOS APRN) Dragon Disclaimer: Dragon Disclaimer: This electronic medical record was generated, in whole or in part, using a voice recognition dictation system. (VANI PALACIOS APRN) Departure Departure Impression: Primary Impression: Cough Additional Impression: Headache Qualified Codes: R51.9 - Headache, unspecified Disposition: HOME / SELF CARE / HOMELESS Condition: STABLE Referrals: NO PCP (PCP) Patient Instructions: Cough, Adult, General Headache Without Cause Additional Instructions: Follow-up with primary care provider. Drink plenty of fluids. Take Tylenol or ibuprofen for your pain. If you begin having severe shortness of breath, chest pain or cannot keep down fluids return to emergency room. Scripts Methylprednisolone (MEDROL) 4 Mg Tab.ds.pk 1 PKG PO UD, #1 PKG Prov: VANI PALACIOS APRN 07/26/21 Albuterol Sulfate (PROAIR HFA INHALER) 8.5 Gm Hfa.aer.ad 1 PUFF INH PRN Q6HRS PRN for SHORTNESS OF BREATH, #1 EACH 0 Refills Prov: VANI PALACIOS APRN 07/26/21 Attending Signature Attending Signature I have reviewed the PA/ANALOG DEVICE DESIGNER's note and plan of care. I was available for consultation as needed during the patient's visit in the emergency department. I agree with the clinical impression, plan, and disposition. (JOSHUA GOMEZ DO) VANI PALACIOS APRN Jul 26, 2021 18:46 JOSHUA GOMEZ DO Jul 26, 2021 22:52
--- NOTE | 2021-07-26 19:05 | RAD ---
INDICATION: Reason: COUGH / Spl. Instructions: / History: COMPARISON: January 2018 FINDINGS: Single view of chest obtained. No focal airspace consolidation. Cardiomediastinal contour unremarkable. No acute osseous abnormality. IMPRESSION: * No focal airspace consolidation or edema. Electronically signed by: Matthew Ledezma MD (07/26/2021 7:03 PM) [id number]
[2021-07-26] MEDS ORDERED: ALBU2.5V8 INH (19:20)
[2021-07-26] MEDS ORDERED: METH4TAB2 PO (19:20)
--- NOTE | 2021-07-29 14:23 | NUR ---
IP: Attempted to contact pt concerning covid results. No answer, left a voicemail to return the call.
--- NOTE | 2021-07-30 18:05 | NUR ---
IP: Attempted to contact pt concerning the covid results. As soon as I identified myself and verified her name, she hung up. Attempted to call back and pt did not answer.
== END 2021-07-26 20:37 | disposition home or self-care (01) ==
LOC: ER 17:37
DX: R05 Cough (principal); R51.9 Headache, unspecified; Z20.822 Contact with and (suspected) exposure to COVID-19; Z98.890 Other specified postprocedural states
CPT/HCPCS: 71045; 87426; 99284; U0003; U0005